=== PATIENT | female | born 1940 | race Caucasian/White ===

== ENCOUNTER 2017-06-24 10:32 | Inpatient (IN) | payer MEDICARE, OTHER ==
[~2017-06-24] VITALS: Ht 162.6 cm; Wt 52.0 kg
[2017-06-24 10:35] VITALS: BP 118/56; PULSE 84; RESP 18; TEMP 97.5; O2SAT 94
--- NOTE | 2017-06-24 11:01 | PD ---
HPI Chief Complaint: GI Complaint Time Seen by Provider: 10:46 Travel History International Travel<30 days: No Contact w/Intl Traveler<30days: No Traveled to known affect area: No History of Present Illness HPI 76-year-old female came to the emergency room with history of rectal bleeding. She is here with her . As per the patient the symptoms have been going on for past 2-3 days. Yesterday she was at her primary care's office where blood test and CT scan was ordered and she has copies of the report from there. The CT scan showed thickened wall of colon suggestive of either diverticulitis , colitis or malignancy. Patient says that she had her last colonoscopy done 3- 4 years ago which showed diverticulosis. They recently moved in to [facility] and she doesn't have any gastroenterologists here. Between yesterday from the time the blood test was done till now she has had 5-6 times bright red blood per rectum. She says every time she has this there is no stool in just brought. She is also having abdominal pain. She is nauseous but no vomiting. Patient recently had a facelift procedure done 1 week ago. Vital signs were relatively stable. [facility] Past Medical History Narrative Medical List of her past medical, surgical, social and family history is reviewed from the nursing note. Social History Tobacco Use: No Allergies-Medications (Allergen,Severity, Reaction): Coded Allergies: No Known Allergies (Unverified , 06/24/17) Comments No known drug allergies. Reported Meds & Prescriptions Reported Meds & Active Scripts Active Reported Lisinopril 5 Mg Tab 5 Mg PO DAILY Atorvastatin (Atorvastatin Calcium) 10 Mg Tab 10 Mg PO HS Adderall (Amphetamine-Dextroamphetamine) 10 Mg Tab 10 Mg PO BID Avoid late evening doses. Space doses at least 4 to 6 hours if more than once/day dosing. Narrative Medication List of her home medications reviewed from the nursing note. Review of Systems Except as stated in HPI: all other systems reviewed are Neg Physical Exam Narrative GENERAL: Awake, alert, moderate distress SKIN: Focused skin assessment warm/dry. HEAD: Atraumatic. Normocephalic. EYES: Pupils equal and round. No scleral icterus. No injection or drainage. ENT: No nasal bleeding or discharge. Dry mucous membrane NECK: Trachea midline. No JVD. CARDIOVASCULAR: Regular rate and rhythm. No murmur appreciated. RESPIRATORY: No accessory muscle use. Clear to auscultation. Breath sounds equal bilaterally. GASTROINTESTINAL: Abdomen soft, tender left and right lower quadrants., nondistended. Hepatic and splenic margins not palpable. MUSCULOSKELETAL: No obvious deformities. No clubbing. No cyanosis. No edema. NEUROLOGICAL: Awake and alert. No obvious cranial nerve deficits. Motor grossly within normal limits. Normal speech. PSYCHIATRIC: Appropriate mood and affect; insight and judgment normal. Data Data Last Documented VS Vital Signs Date Time Temp Pulse Resp B/P (MAP) Pulse Ox O2 Delivery O2 Flow Rate FiO2 06/24/17 12:00 78 18 160/72 (101) 98 Room Air 06/24/17 10:35 97.5 Orders Orders Basic Metabolic Panel (Bmp) (06/24/17 11:04) Complete Blood Count With Diff (06/24/17 11:04) Prothrombin Time / Inr (Pt) (06/24/17 11:04) Iv Access Insert/Monitor (06/24/17 11:04) Ecg Monitoring (06/24/17 11:04) Oximetry (06/24/17 11:04) Sodium Chlor 0.9% 1000 Ml Inj (Ns 1000 M (06/24/17 11:04) Sodium Chloride 0.9% Flush (Ns Flush) (06/24/17 11:15) Ciprofloxacin 400 Mg Premix (Cipro 400 M (06/24/17 11:15) Metronidazole 500 Mg Inj (Flagyl 500 Mg (06/24/17 11:15) Consult Gastroenterology (06/24/17 ) Cephalexin (Keflex) (06/24/17 12:00) (Hub Use Only)Inp Phy Cons/Ref (06/24/17 ) Admit Order (Ed Use Only) (06/24/17 12:31) Admit To Inpatient (06/24/17 ) Vital Signs (Adult) Q4H (06/24/17 12:31) Activity Oob With Assistance (06/24/17 12:31) Intake + Output RICKIE.QSHIFT (06/24/17 12:31) Sodium Chlor 0.9% 1000 Ml Inj (Ns 1000 M (06/24/17 12:31) Sodium Chloride 0.9% Flush (Ns Flush) (06/24/17 12:45) Sodium Chloride 0.9% Flush (Ns Flush) (06/24/17 21:00) Acetaminophen (Tylenol) (06/24/17 12:45) Ondansetron Inj (Zofran Inj) (06/24/17 12:45) Temazepam (Restoril) (06/24/17 12:45) Basic Metabolic Panel (Bmp) (06/25/17 06:00) Complete Blood Count With Diff (06/25/17 06:00) Electrocardiogram (06/24/17 12:31) Pt Request For Service (06/24/17 12:31) Case Management Consult (06/24/17 12:31) Scd Bilateral/Knee High RICKIE.BID (06/24/17 12:31) Rashad Bilateral/Knee High RICKIE.QSHIFT (06/24/17 12:31) Pharmacologic Contraindication (06/24/17 12:31) Naloxone Inj (Narcan Inj) (06/24/17 12:45) Docusate Sodium-Senna (Melissa-Colace) (06/24/17 21:00) Magnesium Hydroxide Liq (Milk Of Magnesi (06/24/17 12:45) Sennosides (Senokot) (06/24/17 12:45) Bisacodyl Supp (Dulcolax Supp) (06/24/17 12:45) Lactulose Liq (Lactulose Liq) (06/24/17 12:45) Inpatient Certification (06/24/17 ) Labs Laboratory Tests Test 06/24/17 11:10 White Blood Count 13.0 TH/MM3 Red Blood Count 4.26 MIL/MM3 Hemoglobin 13.9 GM/DL Hematocrit 41.1 % Mean Corpuscular Volume 96.4 FL Mean Corpuscular Hemoglobin 32.5 PG Mean Corpuscular Hemoglobin Concent 33.7 % Red Cell Distribution Width 13.0 % Platelet Count 280 TH/MM3 Mean Platelet Volume 8.7 FL Neutrophils (%) (Auto) 82.5 % Lymphocytes (%) (Auto) 9.3 % Monocytes (%) (Auto) 7.1 % Eosinophils (%) (Auto) 0.7 % Basophils (%) (Auto) 0.4 % Neutrophils # (Auto) 10.7 TH/MM3 Lymphocytes # (Auto) 1.2 TH/MM3 Monocytes # (Auto) 0.9 TH/MM3 Eosinophils # (Auto) 0.1 TH/MM3 Basophils # (Auto) 0.1 TH/MM3 CBC Comment DIFF FINAL Differential Comment Prothrombin Time 10.4 SEC Prothromb Time International Ratio 0.9 RATIO Blood Urea Nitrogen 9 MG/DL Creatinine 1.01 MG/DL Random Glucose 107 MG/DL Calcium Level 9.0 MG/DL Sodium Level 136 MEQ/L Potassium Level 4.1 MEQ/L Chloride Level 101 MEQ/L Carbon Dioxide Level 27.4 MEQ/L Anion Gap 8 MEQ/L Estimat Glomerular Filtration Rate 53 ML/MIN MDM Medical Decision Making Medical Screen Exam Complete: Yes Emergency Medical Condition: Yes Medical Record Reviewed: Yes Differential Diagnosis Acute diverticulitis, diverticulosis, colitis, intra-abdominal malignancy Narrative Course 11:45 AM awaiting for the blood test result. Patient is getting a liter fluid bolus. I have discussed the case with school library media specialist Dr. Fofana. She will consult on this patient while she is admitted. I have started her on IV Cipro and Flagyl as well with the possibility of acute diverticulitis. Stool for C. difficile is pending. Procedures EKG Prior to Arrival: No HemaPrompt Point of Care Internal Pos. & Neg. Controls: Passed Fecal Specimen Occult Blood: Positive Comment Bright red blood on the gloved finger Physician Communication Physician Communication Dr. Fofana Diagnosis Primary Impression: Rectal bleeding Additional Impression: Diverticulitis Qualified Codes: K57.93 - Diverticulitis of intestine, part unspecified, without perforation or abscess with bleeding Admitting Information Admitting Physician Requests: Admit Scripts Levofloxacin (Levaquin) 500 Mg Tablet 500 MG PO DAILY@1200 for infection for 10 Days, MG Prov: Peggy Samuel MD 06/26/17 Metronidazole (Flagyl) 500 Mg Tab 500 MG PO Q8HR for Infection for 10 Days, TAB Prov: Peggy Samuel MD 06/26/17 Pantoprazole (Pantoprazole) 40 Mg Tab 40 MG PO DAILY for gerd, #30 TAB Prov: Peggy Samuel MD 06/26/17 Jaswinder Herndon MD Jun 24, 2017 11:01
[2017-06-24] MEDS ORDERED: SODIUM CHLOR 0.9% 1000 ML INJ 1,000 ML IV SCH (11:04)
[2017-06-24] MEDS ORDERED: metroNIDAZOLE 500 MG INJ 100 ML IV ONE (11:15)
[2017-06-24] MEDS ORDERED: CIPROFLOXACIN 400 MG PREMIX 200 ML IV ONE (11:15)
[2017-06-24] MEDS ORDERED: SODIUM CHLORIDE 0.9% FLUSH 10 ML FLUSH IV FLUSH PRN ×2 (11:15→12:45)
[2017-06-24] MEDS ORDERED: ADDE10 PO (11:33)
[2017-06-24 11:45] LABS: AUTOMATED NEUTROPHIL # 10.7 TH/MM3 (1.8-7.7); BASOPHIL # 0.1 TH/MM3 (0-0.2); BASOPHIL % 0.4 % (0.0-2.0); EOSINOPHIL # 0.1 TH/MM3 (0-0.4); EOSINOPHIL % 0.7 % (0.0-4.0); HEMATOCRIT 41.1 % (35.0-46.0); HEMO FLAGS DIFF FINAL; LYMPH % 9.3 % (9.0-44.0); LYMPHOCYTE # 1.2 TH/MM3 (1.0-4.8); MEAN CELL VOLUME 96.4 FL (80.0-100.0); MEAN CORPUSCULAR HEMOGLOBIN 32.5 PG (27.0-34.0); MEAN CORPUSCULAR HGB CONC 33.7 % (32.0-36.0); MONO % 7.1 % (0.0-8.0); NEUT % 82.5 % (16.0-70.0); PLATELET COUNT 280 TH/MM3 (150-450); RED BLOOD COUNT 4.26 MIL/MM3 (4.00-5.30)
[2017-06-24 11:54] LABS: INTERNATIONAL NORMALIZED RATIO 0.9 RATIO; PROTHROMBIN TIME - PATIENT 10.4 SEC (9.8-11.6)
[2017-06-24 11:59] LABS: BICARBONATE 27.4 MEQ/L (21.0-32.0); POTASSIUM 4.1 MEQ/L (3.5-5.1)
[2017-06-24 12:00] VITALS: BP 160/72; PULSE 78; RESP 18; O2SAT 98
[2017-06-24] MEDS ORDERED: CEPHALEXIN MONOHYDRATE 250 MG CAP PO ONE (12:00)
[2017-06-24] MEDS ORDERED: ONDANSETRON HCL 4 MG/2 ML VIAL IVP PRN (12:45)
[2017-06-24] MEDS ORDERED: BISACODYL 10 MG SUPP RECTAL PRN (12:45)
[2017-06-24] MEDS ORDERED: LACTULOSE SYRUP 20 GM/30 ML CUP PO PRN (12:45)
[2017-06-24] MEDS ORDERED: TEMAZEPAM 15 MG CAP PO PRN (12:45)
[2017-06-24] MEDS ORDERED: SENNOSIDES 8.6 MG TAB PO PRN (12:45)
[2017-06-24] MEDS ORDERED: MAGNESIUM HYDROXIDE SUSP 30 ML CUP PO PRN (12:45)
[2017-06-24] MEDS ORDERED: ACETAMINOPHEN 325 MG TAB PO PRN (12:45)
[2017-06-24] MEDS: metroNIDAZOLE 500 MG INJ 100 ML IV SCH ×2 (12:45→20:33)
[2017-06-24] MEDS ORDERED: NALOXONE HCL 0.4 MG/ML AMP IV PUSH PRN (12:45)
[2017-06-24 13:00] VITALS: BP 150/67; PULSE 75; RESP 16; O2SAT 98
[2017-06-24] MEDS: CIPROFLOXACIN 400 MG PREMIX 200 ML IV SCH ×2 (13:00→20:34)
--- NOTE | 2017-06-24 14:06 | PD.CONS ---
HPI History of Present Illness This is a 76 year old female who presented to the emergency room for evaluation of rectal bleeding. She was seen by her primary care physician and had an outpatient CT scan of the abdomen and pelvis that revealed thickened wall of colon suggestive of either diverticulitis, colitis or malignancy. She states about 2 days ago, she had the sudden urge to move her bowels and became diaphoretic. She went to the restroom and passed "a puddle of blood and stool" initially. She had multiple episodes and it gradually became less stool and more blood until she was only passing blood. She has associated lower abdominal cramping. She has had chills, but no fevers. There are no aggravating or alleviating factors. Her weight has gone from 128 to 114 over the past few months. She reports that she is eating the same, but it is harder to keep weight on. She has not had any further episodes since her arrival to the ER. She recently underwent a "mini face lift" in [place] 1 week ago from yesterday. She was given an antibiotic afterwards, but had a reaction and therefore she called him and this was changed to another antibiotic. She completed this yesterday, but does not recall the name of the medicine. Her last colonoscopy was 4 years ago in [facility]. She has a hx of diverticulosis. (Amirah Robles) PFSH Past Medical History Hx pyloric stenosis Squamous cell carcinoma skin cancer Diverticulosis Past Surgical History EGD/Colonoscopy Left nephrectomy Recent "mini face lift" Skin cancer removals Tonsillectomy Appendectomy (Amirah Robles) Coded Allergies: No Known Allergies (Unverified , 06/24/17) Medications Allergies Coded Allergies Type Severity Reaction Last Updated Verified No Known Allergies 06/24/17 No Active Scripts Medications Dose Route/Sig Max Daily Dose Days Date Category Dose Instructions Adderall (Amphetamine-Dextroamphetamine) 10 Mg Tab 10 Mg PO BID 06/24/17 Reported Avoid late evening doses. Space doses at least 4 to 6 hours if more than once/day dosing. Family History Denies any family hx of esophageal, gastric, or colorectal cancer Son had prostate cancer Social History Quit smoking years ago, around age 29 No etoh use (Amirah Robles) Review of Systems Constitutional: COMPLAINS OF: Diaphoretic episodes, Fatigue, Weight loss, Chills, DENIES: Fever, Change in appetite Respiratory: DENIES: Cough Cardiovascular: DENIES: Chest pain Gastrointestinal: COMPLAINS OF: Abdominal pain, Bloody stools, Diarrhea, DENIES : Black stools, Constipation, Nausea, Vomiting, Anorexia, Odynophagia, Heartburn , Hematemesis Integumentary: DENIES: Rash Hematologic/lymphatic: COMPLAINS OF: Bruising Neurologic: DENIES: Headache Psychiatric: DENIES: Confusion (RoblesAmirah Ross CARLOS) GI Exam Vitals I&O Vital Signs Date Time Temp Pulse Resp B/P (MAP) Pulse Ox O2 Delivery O2 Flow Rate FiO2 06/24/17 10:35 97.5 84 18 118/56 (76) 94 Room Air Laboratory Test 06/24/17 11:10 White Blood Count 13.0 TH/MM3 Red Blood Count 4.26 MIL/MM3 Hemoglobin 13.9 GM/DL Hematocrit 41.1 % Mean Corpuscular Volume 96.4 FL Mean Corpuscular Hemoglobin 32.5 PG Mean Corpuscular Hemoglobin Concent 33.7 % Red Cell Distribution Width 13.0 % Platelet Count 280 TH/MM3 Mean Platelet Volume 8.7 FL Neutrophils (%) (Auto) 82.5 % Lymphocytes (%) (Auto) 9.3 % Monocytes (%) (Auto) 7.1 % Eosinophils (%) (Auto) 0.7 % Basophils (%) (Auto) 0.4 % Neutrophils # (Auto) 10.7 TH/MM3 Lymphocytes # (Auto) 1.2 TH/MM3 Monocytes # (Auto) 0.9 TH/MM3 Eosinophils # (Auto) 0.1 TH/MM3 Basophils # (Auto) 0.1 TH/MM3 CBC Comment DIFF FINAL Differential Comment Prothrombin Time 10.4 SEC Prothromb Time International Ratio 0.9 RATIO Blood Urea Nitrogen 9 MG/DL Creatinine 1.01 MG/DL Random Glucose 107 MG/DL Calcium Level 9.0 MG/DL Sodium Level 136 MEQ/L Potassium Level 4.1 MEQ/L Chloride Level 101 MEQ/L Carbon Dioxide Level 27.4 MEQ/L Anion Gap 8 MEQ/L Estimat Glomerular Filtration Rate 53 ML/MIN Physical Examination HEENT: Pupils round and reactive to light; normocephalic; atraumatic; no jaundice. Throat is clear. NECK: Neck is supple, no JVD, no lymphadenopathy. CHEST: Chest is clear to auscultation and percussion. CARDIAC: Regular rate and rhythm with no murmur gallop or rubs. ABDOMEN: Soft, nondistended, nontender; no hepatosplenomegaly; bowel sounds are present in all four quadrants. EXTREMITIES: No clubbing, cyanosis, or edema. SKIN: Normal; no rash; no jaundice. 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 (Amirah Robles) Assessment and Plan Plan ASSESSMENT: - Diverticulitis vs. Colitis. Pt started having rectal bleeding with associated lower abdominal cramping. CT scan abdomen and pelvis with contrast (06/24/17)---> 1.) extensive wall thickening descending colon, likely diverticulitis vs. colitis. No perforation or abscess. Once acute process has resolved, colonoscopy may be warranted to ensure no underlying pathology. 2.) Prominent endometrium in prominent appearing uterus, malignancy cannot be excluded. Pelvic US recommended for further characterization. 3.) Left nephrectomy. 4.) Sclerotic focus at L1, nonspecific. (+) Diverticulosis. Last colonoscopy 4 years ago. (+) recent procedure and abx use (completed course yesterday). No diarrhea. Will get CDiff. Otherwise, tx for diverticulitis x 10 days and then consider colonoscopy in 6 weeks. - Leukocytosis. Likely secondary to above. Abx - GEMMA, Mild. - Abn. Imaging of uterus, with prominent endometrium in prominent appearing uterus, malignancy cannot be excluded. Pelvic US recommended. Will defer to attending. PLAN: - Low residue diet - Cipro/Flagyl x 10 days - Send stool for CDiff - CBC, BMP in am - Supportive care - Will need outpatient colonoscopy in 6 weeks - Further recommendations to follow based on results of above - Pt seen and examined by Dr. Fofana and myself and this note is written on his behalf (Amirah Robles) Physician Comments seen, examined agree with above flexisigmoidoscopy in am to r/o ischemic colitis stool studies (Margarita Fofana MD) Amirah Robles Jun 24, 2017 14:06 Margarita Fofana MD Jun 24, 2017 19:23
--- NOTE | 2017-06-24 14:30 | HHI.HP ---
[facility] Service [facility] Primary Care Physician Non-Staff Admission Diagnosis rectal bleed, acute diverticulitis Diagnoses: Chief Complaint: Rectal bleeding and abdominal pain. Travel History International Travel<30 Days: No Contact w/Intl Traveler <30 Da: No Traveled to Known Affected Are: No History of Present Illness Written by Manuel Jon, acting as scribe for Dr. Bharat Samuel on 06/24/17 at 14: 18. Ms. 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 She stated that the surgeon told her she was not a candidate at that time for surgery. Ms. Acosta reported having undergone a "mini facelift" approximately one week ago and was due to have her stitches removed yesterday, but due to her condition, was not able to return to [place], [place] to have them removed. Ms. Freeman presented to the emergency room for evaluation of rectal bleeding that began 2-3 days ago. At that time though the rectal bleeding onset she also began experiencing abdominal pain. Bowel movements have been described as bloody without stool. Over the past 24 hours she reported having 5-6 large bloody bowel movements. She stated when this began she felt "icy cold" and was sweating to the extent that "sweated right through my close". Appetite has also been reported reduced. She was seen by her primary care physician and had an outpatient CT scan of the abdomen and pelvis that revealed thickened wall of colon suggestive of either diverticulitis, colitis or malignancy. Ms. Freeman reported her primary care physician directed her to come to [facility] for evaluation and management of her condition. At time of interview Ms. Freeman endorsed fatigue, abdominal pain, and concerned about her general well-being. She denied fever, chills, nausea, vomiting, constipation, chest/abdominal pain, shortness of breath. A 10 point review of systems was completed and except as noted above, was negative. Review of Systems Except as stated in HPI: all other systems reviewed are Neg Past Family Social History Past Medical History Hx pyloric stenosis Squamous cell carcinoma skin cancer Diverticulosis Hypnagogic hallucinations Spinal/bacterial meningitis. Hypertension. Past Surgical History EGD/Colonoscopy Left nephrectomy Recent "mini face lift" Skin cancer removals Tonsillectomy Appendectomy Reported Medications Reported Meds & Active Scripts Active Reported Adderall (Amphetamine-Dextroamphetamine) 10 Mg Tab 10 Mg PO BID Avoid late evening doses. Space doses at least 4 to 6 hours if more than once/day dosing. Allergies: Coded Allergies: No Known Allergies (Unverified , 06/24/17) Active Ordered Medications Current Medications Medications (Trade) Dose Ordered Sig/Ciaran Route Start Time Stop Time Status Last Admin (NS Flush) 2 ml UNSCH PRN IV FLUSH 06/24/17 11:15 06/24/17 11:28 Sodium Chloride 1,000 ml @ 100 mls/hr Q10H IV 06/24/17 12:31 06/24/17 15:31 (NS Flush) 2 ml UNSCH PRN IV FLUSH 06/24/17 12:45 (NS Flush) 2 ml BID IV FLUSH 06/24/17 21:00 (Tylenol) 650 mg Q4H PRN PO 06/24/17 12:45 (Zofran Inj) 4 mg Q6H PRN IVP 06/24/17 12:45 (Restoril) 15 mg HS PRN PO 06/24/17 12:45 (Narcan Inj) 0.4 mg UNSCH PRN IV PUSH 06/24/17 12:45 (Melissa-Colace) 1 tab BID PO 06/24/17 21:00 (Milk Of Magnesia Liq) 30 ml Q12H PRN PO 06/24/17 12:45 (Senokot) 17.2 mg Q12H PRN PO 06/24/17 12:45 (Dulcolax Supp) 10 mg DAILY PRN RECTAL 06/24/17 12:45 (Lactulose Liq) 30 ml DAILY PRN PO 06/24/17 12:45 (Protonix) 40 mg DAILY PO 06/25/17 09:00 Ciprofloxacin/ Dextrose 200 ml @ 200 mls/hr Q8H IV 06/24/17 13:00 Metronidazole 100 ml @ 100 mls/hr Q6H IV 06/24/17 12:45 (Adderall) 10 mg BID PO 06/24/17 21:00 Family History Denies any family hx of esophageal, gastric, or colorectal cancer Son had prostate cancer Social History Quit smoking years ago, around age 29 No etoh use Physical Exam Vital Signs Vital Signs Date Time Temp Pulse Resp B/P (MAP) Pulse Ox O2 Delivery O2 Flow Rate FiO2 06/24/17 10:35 97.5 84 18 118/56 (76) 94 Room Air Physical Exam GENERAL: This is a well-nourished, well-developed patient, in no apparent distress. SKIN: No rashes, ecchymoses or lesions. Cool and dry. HEAD: Atraumatic. Normocephalic. EYES: Pupils equal round and reactive. Extraocular motions intact. No scleral icterus. No injection or drainage. ENT: Nose without bleeding or purulent drainage. Airway patent. NECK: Trachea midline. No lymphadenopathy. Supple and nontender. CARDIOVASCULAR: Regular rate and rhythm without murmurs, gallops, or rubs. RESPIRATORY: Clear to auscultation. Breath sounds equal bilaterally. No wheezes , rales, or rhonchi. GASTROINTESTINAL: Abdomen soft, non-tender, nondistended. No hepato- splenomegaly or guarding. MUSCULOSKELETAL: Extremities without clubbing, cyanosis, or edema. NEUROLOGICAL: Awake and alert. Cranial nerves II through XII intact. Motor and sensory grossly within normal limits. Five out of 5 muscle strength in all muscle groups. Speech was clear and fluent. Laboratory Laboratory Tests Test 06/24/17 11:10 White Blood Count 13.0 Red Blood Count 4.26 Hemoglobin 13.9 Hematocrit 41.1 Mean Corpuscular Volume 96.4 Mean Corpuscular Hemoglobin 32.5 Mean Corpuscular Hemoglobin Concent 33.7 Red Cell Distribution Width 13.0 Platelet Count 280 Mean Platelet Volume 8.7 Neutrophils (%) (Auto) 82.5 Lymphocytes (%) (Auto) 9.3 Monocytes (%) (Auto) 7.1 Eosinophils (%) (Auto) 0.7 Basophils (%) (Auto) 0.4 Neutrophils # (Auto) 10.7 Lymphocytes # (Auto) 1.2 Monocytes # (Auto) 0.9 Eosinophils # (Auto) 0.1 Basophils # (Auto) 0.1 CBC Comment DIFF FINAL Differential Comment Prothrombin Time 10.4 Prothromb Time International Ratio 0.9 Blood Urea Nitrogen 9 Creatinine 1.01 Random Glucose 107 Calcium Level 9.0 Sodium Level 136 Potassium Level 4.1 Chloride Level 101 Carbon Dioxide Level 27.4 Anion Gap 8 Estimat Glomerular Filtration Rate 53 Result Diagram: 06/24/17 1110 06/24/17 1110 Caprini VTE Risk Assessment Caprini VTE Risk Assessment: Mod/High Risk (score >= 2) VTE Pharm Contraindication: Active bleeding Caprini Risk Assessment Model Point Value = 1 Point Value = 2 Point Value = 3 Point Value = 5 Age 41-60 Minor surgery BMI > 25 kg/m2 Swollen legs Varicose veins or History of unexplained or recurrent spontaneous Oral contraceptives or hormone replacement Sepsis (< 1 month) Serious lung disease, including pneumonia (< 1 month) Abnormal pulmonary function Acute myocardial infarction Congestive heart failure (< 1 month) History of inflammatory bowel disease Medical patient at bed rest Age 61-74 Arthroscopic surgery Major open surgery (> 45 min) Laparoscopic surgery (> 45 min) Malignancy Confined to bed (> 72 hours) Immobilizing plaster cast Central venous access Age >= 75 History of VTE Family history of VTE Factor V Leiden Prothrombin [id number] Lupus anticoagulant Anticardiolipin antibodies Elevated serum homocysteine Heparin-induced thrombocytopenia Other congenital or acquired thrombophilia Stroke (< 1 month) Elective arthroplasty Hip, pelvis, or leg fracture Acute spinal cord injury (< 1 month) Prophylaxis Regimen Total Risk Factor Score Risk Level Prophylaxis Regimen 0-1 Low Early ambulation 2 Moderate Order ONE of the following: *Sequential Compression Device (SCD) *Heparin 5000 units SQ BID 3-4 Higher Order ONE of the following medications: *Heparin 5000 units SQ TID *Enoxaparin/Lovenox 40 mg SQ daily (WT < 150 kg, CrCl > 30 mL/min) *Enoxaparin/Lovenox 30 mg SQ daily (WT < 150 kg, CrCl > 10-29 mL/min) *Enoxaparin/Lovenox 30 mg SQ BID (WT < 150 kg, CrCl > 30 mL/min) AND/OR *Sequential Compression Device (SCD) 5 or more Highest Order ONE of the following medications: *Heparin 5000 units SQ TID (Preferred with Epidurals) *Enoxaparin/Lovenox 40 mg SQ daily (WT < 150 kg, CrCl > 30 mL/min) *Enoxaparin/Lovenox 30 mg SQ daily (WT < 150 kg, CrCl > 10-29 mL/min) *Enoxaparin/Lovenox 30 mg SQ BID (WT < 150 kg, CrCl > 30 mL/min) AND *Sequential Compression Device (SCD) Assessment and Plan Problem List: (1) GI (gastrointestinal bleed) ICD Code: K92.2 - Gastrointestinal hemorrhage, unspecified Status: Acute (2) Diverticulitis ICD Code: K57.92 - Diverticulitis of intestine, part unspecified, without perforation or abscess without bleeding Status: Acute (3) Hypertension, essential ICD Code: I10 - Essential (primary) hypertension Status: Chronic (4) ADD (attention deficit disorder) ICD Code: F98.8 - Other specified behavioral and emotional disorders with onset usually occurring in childhood and adolescence (5) Hypnagogic hallucinations ICD Code: R44.2 - Other hallucinations Status: Chronic Assessment and Plan Ms. 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 She stated that the surgeon told her she was not a candidate at that time for surgery. Ms. Acosta reported having undergone a "mini facelift" approximately one week ago and was due to have her stitches removed yesterday, but due to her condition, was not able to return to [place], [place] to have them removed. GI bleed Diverticulitis -Admit to inpt service. -GI consulted -Protonix 40 mg by mouth daily -Ciprofloxacin 400 mg IV every 8 hrs -Metronidazole 500 mg IV every 6 hours Hypnagogic hallucinations Attention deficit disorder -Adderall 10 mg by mouth twice a day Hypertension -Enlapril IV prn for systolic BP greater than 160 -Hydralazine IV prn for systolic BP greater than 160 -Resume home medications once known. DVT prophylaxis -Chemoprophylaxis not warranted at this time due to patient's active bleeding. -SCDs ordered. Diet -Regular per GI This note was transcribed by LINSEY Burch. I, Dr. Peggy Samuel personally performed the history, physical exam, and medical decision making; and confirmed the accuracy of the information in the transcribed note. Authenticated by Dr. Peggy Samuel on 06/24/17 at 14:18. Discussed Condition With Patient and ER staff Physician Certification 2 Midnight Certification Type: Admission for Inpatient Services Order for Inpatient Services The services are ordered in accordance with Medicare regulations or non- Medicare payer requirements, as applicable. In the case of services not specified as inpatient-only, they are appropriately provided as inpatient services in accordance with the 2-midnight benchmark. Estimated LOS (days): 3 Three days is the estimated time the patient will need to remain in the hospital , assuming treatment plan goals are met and no additional complications. Post-Hospital Plan: Home Problem Qualifiers (1) GI (gastrointestinal bleed): Qualified Codes: K92.2 - Gastrointestinal hemorrhage, unspecified (2) Diverticulitis: Qualified Codes: K57.93 - Diverticulitis of intestine, part unspecified, without perforation or abscess with bleeding (3) ADD (attention deficit disorder): Qualified Codes: F90.9 - Attention-deficit hyperactivity disorder, unspecified type Manuel Jon Jr. Jun 24, 2017 14:30 Peggy Samuel MD Jun 24, 2017 15:36
[2017-06-24 15:00] VITALS: BP 171/77; PULSE 75; RESP 19; O2SAT 98
[2017-06-24] MEDS: SODIUM CHLOR 0.9% 1000 ML INJ 1,000 ML IV SCH ×2 (15:31→20:00)
[2017-06-24] MEDS ORDERED: LISI-519 PO (15:54)
[2017-06-24] MEDS ORDERED: ATOR10TA15 PO (15:54)
[2017-06-24] MEDS ORDERED: hydrALAZINE HCL 10 MG TAB PO PRN (17:30)
[2017-06-24] MEDS ORDERED: ENALAPRILAT 2.5 MG/2 ML VIAL IV PUSH PRN (17:30)
[2017-06-24 18:39] VITALS: BP 143/66
[2017-06-24 20:00] VITALS: BP 142/63; PULSE 78; RESP 16; TEMP 97.2; O2SAT 95
[2017-06-24] MEDS: DOCUSATE SODIUM 50 MG/SENNA 8.6 MG TAB PO SCH (20:34)
[2017-06-24] MEDS: SODIUM CHLORIDE 0.9% FLUSH 10 ML FLUSH IV FLUSH SCH (20:34)
[2017-06-24] MEDS: DEXTROAMPHETAMINE/AMPHETAMINE 10 MG TAB PO SCH (21:00)
[2017-06-25] MEDS: metroNIDAZOLE 500 MG INJ 100 ML IV SCH ×5 (00:32→23:13)
[2017-06-25 00:33] LABS: REVIEW FLAG FINAL
[2017-06-25 00:37] VITALS: BP 141/65; PULSE 76; RESP 16; TEMP 96.5; O2SAT 97
[2017-06-25] MEDS ORDERED: LACTATED RINGER'S 1000 ML IV PRN (04:45)
[2017-06-25] MEDS: CIPROFLOXACIN 400 MG PREMIX 200 ML IV SCH ×3 (04:56→19:51)
[2017-06-25 07:06] LABS: AUTOMATED NEUTROPHIL # 9.3 TH/MM3 (1.8-7.7); BASOPHIL # 0.2 TH/MM3 (0-0.2); BASOPHIL % 1.8 % (0.0-2.0); EOSINOPHIL # 0.3 TH/MM3 (0-0.4); EOSINOPHIL % 2.7 % (0.0-4.0); HEMATOCRIT 35.9 % (35.0-46.0); HEMO FLAGS DIFF FINAL; LYMPH % 7.2 % (9.0-44.0); LYMPHOCYTE # 0.8 TH/MM3 (1.0-4.8); MEAN CELL VOLUME 96.5 FL (80.0-100.0); MEAN CORPUSCULAR HEMOGLOBIN 32.4 PG (27.0-34.0); MEAN CORPUSCULAR HGB CONC 33.6 % (32.0-36.0); MONO % 6.9 % (0.0-8.0); NEUT % 81.4 % (16.0-70.0); PLATELET COUNT 211 TH/MM3 (150-450); RED BLOOD COUNT 3.72 MIL/MM3 (4.00-5.30); RED CELL DISTRIBUTION WIDTH 12.8 % (11.6-17.2); WHITE BLOOD COUNT 11.4 TH/MM3 (4.0-11.0)
[2017-06-25 07:31] LABS: BICARBONATE 25.9 MEQ/L (21.0-32.0); POTASSIUM 3.5 MEQ/L (3.5-5.1)
[2017-06-25 08:00] VITALS: BP 125/60; PULSE 68; RESP 18; TEMP 97.8; O2SAT 94
[2017-06-25] MEDS: DEXTROAMPHETAMINE/AMPHETAMINE 10 MG TAB PO SCH ×3 (08:12→19:52)
[2017-06-25] MEDS: SODIUM CHLORIDE 0.9% FLUSH 10 ML FLUSH IV FLUSH SCH ×2 (08:12→19:54)
[2017-06-25] MEDS: PANTOPRAZOLE SOD 40 MG DELAYED RELEASE TAB PO SCH (08:14)
[2017-06-25] MEDS: SODIUM CHLOR 0.9% 1000 ML INJ 1,000 ML IV SCH ×3 (08:14→20:02)
[2017-06-25] MEDS: DOCUSATE SODIUM 50 MG/SENNA 8.6 MG TAB PO SCH ×2 (08:14→19:52)
[2017-06-25] MEDS ORDERED: PROPOFOL 200 MG/20 ML AMP IV PUSH ONE (10:10)
--- NOTE | 2017-06-25 10:12 | GIPROC ---
[facility] [address] [facility]. [facility], [address] FLEXIBLE SIGMOIDOSCOPY PROCEDURE REPORT EXAM DATE: 06/25/2017 PATIENT NAME: Lupis Freeman MR #: [id number] BIRTHDATE: 1940 ORDER #: [id number] ATTENDING: Margarita Fofana MD CERTIFIED CREDIT COUNSELOR: Tej Vargas and Colleen Lozada STATUS: inpatient INDICATIONS: The patient is a 76 yr old female here for a flexible sigmoidoscopy due to rectal bleeding , abnormal ct PROCEDURE PERFORMED: Flexible Sigmoidoscopy with biopsy MEDICATIONS: Per Anesthesia and None. ESTIMATED BLOOD LOSS: None CONSENT: The patient understands the risks and benefits of the procedure and understands that these risks include, but are not limited to: sedation, allergic reaction, infection, perforation and/or bleeding. Alternative means of evaluation and treatment include, among others: physical exam, x-rays, and/or surgical intervention. The patient elects to proceed with this endoscopic procedure. medical equipment was checked for proper function. Hand hygiene and appropriate measures for infection prevention was taken. After the risks, benefits and alternatives of the procedure were thoroughly explained, Informed consent was verified, confirmed and timeout was successfully executed by the treatment team. A digital rectal exam revealed external hemorrhoids The [id number] endoscope was introduced through the anus and advanced to the descending colon. The prep was poor. The instrument was then slowly withdrawn as the colon was fully examined. COLON FINDINGS: Severe diverticulosis sigmoid,descending colitis in descending -suggesting ischemic colitis-biopsy. Retroflexed views revealed external hemorrhoid The scope was then completely withdrawn from the patient and the procedure terminated. ADVERSE EVENTS: There were no complications. IMPRESSIONS: 1. Severe diverticulosis sigmoid,descending colitis in descending -suggesting ischemic colitis-biopsy 2. Retroflexed views revealed external hemorrhoid 3. Revealed external hemorrhoids RECOMMENDATIONS: 1. Await biopsy results 2. Start soft diet colon in 6-8 weeks continue antibiotics if tolerated diet and no bleeding can dc home in 1-2 days fu office 2 weeks low fiber diet RECALL: Return 8 weeks Colonoscopy Margarita Fofana MD eSigned: Margarita Fofana MD 06/25/2017 10:12 AM cc:
--- NOTE | 2017-06-25 11:17 | HHI.PR ---
Subjective Remarks Returned from sigmoidoscopy. In bed, appears in nad. Says she did not have any bleeding overnight and she feels much better. No n/v/d/c. Denies abd pain. No chest pain, lightheadedness. Objective Vitals Vital Signs Date Time Temp Pulse Resp B/P (MAP) Pulse Ox O2 Delivery O2 Flow Rate FiO2 06/25/17 10:27 97.6 74 16 152/78 (102) 98 06/25/17 08:00 97.8 68 18 125/60 (81) 94 06/25/17 00:37 96.5 76 16 141/65 (90) 97 06/24/17 20:00 97.2 78 16 142/63 (89) 95 06/24/17 18:39 78 16 143/66 (91) 98 06/24/17 15:00 75 19 171/77 (108) 98 Room Air 06/24/17 13:00 75 16 150/67 (94) 98 Room Air 06/24/17 12:00 78 18 160/72 (101) 98 Room Air I/O 06/24/17 06/24/17 06/24/17 06/25/17 06/25/17 06/25/17 07:00 15:00 23:00 07:00 15:00 23:00 Intake Total 1300 ml 601 ml 1207 ml 150 ml Balance 1300 ml 601 ml 1207 ml 150 ml Intake IV Total 1300 ml 601 ml 1207 ml Other 150 ml # Voids 2 Result Diagram: 06/25/17 0540 06/25/17 0540 Objective Remarks GENERAL: This is a well-nourished, well-developed patient, in no apparent distress. SKIN: No rashes, ecchymoses or lesions. Cool and dry. CARDIOVASCULAR: Regular rate and rhythm without murmurs, gallops, or rubs. RESPIRATORY: Clear to auscultation. Breath sounds equal bilaterally. No wheezes , rales, or rhonchi. GASTROINTESTINAL: Abdomen soft, non-tender, nondistended. No hepato- splenomegaly or guarding. MUSCULOSKELETAL: Extremities without clubbing, cyanosis, or edema. NEUROLOGICAL: Awake and alert. Cranial nerves II through XII intact. Motor and sensory grossly within normal limits. Five out of 5 muscle strength in all muscle groups. Speech was clear and fluent. A/P Problem List: (1) GI (gastrointestinal bleed) ICD Code: K92.2 - Gastrointestinal hemorrhage, unspecified Status: Acute (2) Diverticulitis ICD Code: K57.92 - Diverticulitis of intestine, part unspecified, without perforation or abscess without bleeding Status: Acute (3) Hypertension, essential ICD Code: I10 - Essential (primary) hypertension Status: Chronic (4) ADD (attention deficit disorder) ICD Code: F98.8 - Other specified behavioral and emotional disorders with onset usually occurring in childhood and adolescence (5) Hypnagogic hallucinations ICD Code: R44.2 - Other hallucinations Status: Chronic Assessment and Plan Ms. 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 She stated that the surgeon told her she was not a candidate at that time for surgery. Ms. Acosta reported having undergone a "mini facelift" approximately one week ago and was due to have her stitches removed yesterday, but due to her condition, was not able to return to [place], [place] to have them removed. Rectal bleeding HGB 13 on admission trending down, monitor H.H transfuse of HGB < 7 or if symptomatic Severe diverticulosis descending sigmoid Colitis in descending sig suggesting ischemic colitis this was biopsied External hemorrhoids -Admit to inpt service. -GI consulted, appreciate recommendations -Protonix 40 mg by mouth daily -Ciprofloxacin 400 mg IV every 8 hrs -Metronidazole 500 mg IV every 6 hours -S/P sigmoidoscopy 06/[address]ofana GI -Soft diet advance as indicated -Colonoscopy in 8 weeks -If tolerates diet and no bleeding can DC home in 1-2 days . Monitor H/H - To follow up with GI as OP in 2 weeks Hypnagogic hallucinations Attention deficit disorder -Adderall 10 mg by mouth twice a day Hypertension -Enlapril IV prn for systolic BP greater than 160 -Hydralazine IV prn for systolic BP greater than 160 -Resume home medications once known. DVT prophylaxis -Chemoprophylaxis not warranted at this time due to patient's active bleeding. -SCDs ordered. Diet - Soft diet, advance diet as per GI recommendation Discussed Condition With Patient and nurse Problem Qualifiers (1) GI (gastrointestinal bleed): Qualified Codes: K92.2 - Gastrointestinal hemorrhage, unspecified (2) Diverticulitis: Qualified Codes: K57.93 - Diverticulitis of intestine, part unspecified, without perforation or abscess with bleeding (3) ADD (attention deficit disorder): Qualified Codes: F90.9 - Attention-deficit hyperactivity disorder, unspecified type Peggy Samuel MD Jun 25, 2017 11:17
[2017-06-25 12:00] VITALS: BP 119/59; PULSE 76; RESP 16; TEMP 97.2; O2SAT 98
[2017-06-25] MEDS ORDERED: PROPOFOL 200 MG/20 ML AMP IV ONE (12:00)
[2017-06-25] MEDS ORDERED: KETOROLAC TROMETHAMINE 30 MG/ML (IVP) VIAL IV PUSH ONE (12:00)
[2017-06-25] MEDS ORDERED: MIDAZOLAM HCL 2 MG/2 ML VIAL IV ONE (12:00)
[2017-06-25] MEDS ORDERED: LIDOCAINE HCL 1% PF 5 ML AMPULE OTHER ONE (12:00)
[2017-06-25] MEDS ORDERED: ONDANSETRON HCL 4 MG/2 ML VIAL IV PUSH ONE (12:00)
--- NOTE | 2017-06-25 14:24 | EKG ---
Date Performed: 06/24/2017 Time Performed: 14:18:25 PTAGE: 76 years EKG: Sinus rhythm NONSPECIFIC T-WAVE ABNORMALITY BORDERLINE ECG NO PREVIOUS TRACING DOCTOR: Jorje Del Cid Interpretating Date/Time 06/25/2017 14:23:31
[2017-06-25 16:00] VITALS: BP 166/82; PULSE 73; RESP 16; TEMP 97.4; O2SAT 94
[2017-06-25 20:22] VITALS: BP 151/66; PULSE 77; RESP 17; TEMP 97.1; O2SAT 94
[2017-06-25] MEDS ORDERED: ATORVASTATIN 10 MG TAB PO SCH (21:00)
[2017-06-26 00:52] VITALS: BP 165/71; PULSE 84; RESP 16; TEMP 97.1; O2SAT 99
[2017-06-26 04:42] VITALS: BP 160/69; PULSE 77; RESP 16; TEMP 97.8; O2SAT 98
[2017-06-26] MEDS: metroNIDAZOLE 500 MG INJ 100 ML IV SCH (05:50)
[2017-06-26] MEDS: CIPROFLOXACIN 400 MG PREMIX 200 ML IV SCH (05:51)
[2017-06-26 08:00] VITALS: BP 189/82; PULSE 70; RESP 17; TEMP 96.9; O2SAT 92
[2017-06-26] MEDS: PANTOPRAZOLE SOD 40 MG DELAYED RELEASE TAB PO SCH (08:16)
[2017-06-26] MEDS: DOCUSATE SODIUM 50 MG/SENNA 8.6 MG TAB PO SCH (08:16)
[2017-06-26] MEDS: DEXTROAMPHETAMINE/AMPHETAMINE 10 MG TAB PO SCH (08:17)
[2017-06-26] MEDS: SODIUM CHLORIDE 0.9% FLUSH 10 ML FLUSH IV FLUSH SCH (08:17)
[2017-06-26] MEDS ORDERED: LISINOPRIL 5 MG TAB PO SCH (09:00)
[2017-06-26 10:00] VITALS: BP 155/68; PULSE 74; RESP 16; TEMP 96.7; O2SAT 96
--- NOTE | 2017-06-26 11:26 | HHI.GIFU ---
Subjective Remarks Ambulating in room, no distress. States she is feeling much better. No further bleeding. She has had a few liquid stools, very small amounts, but she did not know that she needed to get a stool sample. She is tolerating diet, feeling much better and hoping to go home today. Objective Vitals I&O Vital Signs Date Time Temp Pulse Resp B/P (MAP) Pulse Ox O2 Delivery O2 Flow Rate FiO2 06/26/17 10:00 96.7 74 16 155/68 (97) 96 06/26/17 08:00 96.9 70 17 189/82 (117) 92 06/26/17 04:42 97.8 77 16 160/69 (99) 98 06/26/17 00:52 97.1 84 16 165/71 (102) 99 06/25/17 20:22 97.1 77 17 151/66 (94) 94 06/25/17 16:00 97.4 73 16 166/82 (110) 94 06/25/17 12:00 97.2 76 16 119/59 (79) 98 06/25/17 10:27 97.6 74 16 152/78 (102) 98 I/O 06/25/17 06/25/17 06/25/17 06/26/17 06/26/17 06/26/17 07:00 15:00 23:00 07:00 15:00 23:00 Intake Total 1207 ml 250 ml 1400 ml 100 ml 300 ml Balance 1207 ml 250 ml 1400 ml 100 ml 300 ml Intake IV Total 1207 ml 100 ml 1400 ml 100 ml 300 ml Other 150 ml # Voids 2 2 # Bowel Movements 1 Physical Exam HEENT: Normocephalic; atraumatic; no jaundice. CHEST: Chest is clear to auscultation and percussion. CARDIAC: RRR ABDOMEN: Soft, nondistended, mild LLQ tenderness no hepatosplenomegaly; bowel sounds are present in all four quadrants. EXTREMITIES: No clubbing, cyanosis, or edema. SKIN: Normal; no rash; no jaundice. BUTTONHOLE FACER: No focal deficits; alert and oriented times three. Assessment and Plan Plan ASSESSMENT: - Diverticulitis vs. Colitis. Pt started having rectal bleeding with associated lower abdominal cramping. CT scan abdomen and pelvis with contrast (06/24/17)---> 1.) extensive wall thickening descending colon, likely diverticulitis vs. colitis. No perforation or abscess. Once acute process has resolved, colonoscopy may be warranted to ensure no underlying pathology. 2.) Prominent endometrium in prominent appearing uterus, malignancy cannot be excluded. Pelvic US recommended for further characterization. 3.) Left nephrectomy. 4.) Sclerotic focus at L1, nonspecific. (+) Diverticulosis. Last colonoscopy 4 years ago. (+) recent procedure and abx use (completed course yesterday). No diarrhea. S/P Flexible sigmoidoscopy (06/25/17)----> 1. Severe diverticulosis sigmoid ,descending colitis in descending -suggesting ischemic colitis-biopsy 2. Retroflexed views revealed external hemorrhoid 3. Revealed external hemorrhoids. No further bleeding. Stool studies have not been sent, but patient is feeling much better and hoping to go home. WBC 11.4, HH stable yesterday ..9. Cipro/Flagyl - Leukocytosis. Improved. Cipro/flagyl - GEMMA, improved. - Abn. Imaging of uterus, with prominent endometrium in prominent appearing uterus, malignancy cannot be excluded. Pelvic US recommended. Will defer to attending. PLAN: - Okay to d/c home from GI standpoint - Low residue diet - Change abx to po and continue for 10 days today - FU MARTÍN in 2 weeks - FU colonoscopy in 6-8 weeks - Pt seen and examined by Dr. Fofana and myself and this note is written on her behalf Amirah Robles Jun 26, 2017 10:35
[2017-06-26 12:00] VITALS: BP 173/74; PULSE 75; RESP 17; TEMP 96.7; O2SAT 95
[2017-06-26] MEDS ORDERED: LEVOFLOXACIN 500 MG TAB PO SCH (12:00)
[2017-06-26] MEDS ORDERED: PANT40TA3 PO (13:01)
[2017-06-26] MEDS ORDERED: METR-1 PO ×2 (13:01→13:16)
[2017-06-26] MEDS ORDERED: LEVA500T20 PO ×2 (13:01→13:16)
--- NOTE | 2017-06-26 13:01 | HHI.DCPOC ---
Discharge Care Plan Goals to Promote Your Health * To prevent worsening of your condition and complications * To maintain your health at the optimal level Directions to Meet Your Goals Take your medications as prescribed Follow your dietary instruction Follow activity as directed Keep your appointments as scheduled Take your immunizations and boosters as scheduled If your symptoms worsen call your PCP, if no PCP go to Urgent Care Center or Emergency Room Smoking is Dangerous to Your Health. Avoid second hand smoke Call the 24-hour hour crisis hotline for domestic abuse at Peggy Samuel MD Jun 26, 2017 13:01
--- NOTE | 2017-06-26 13:02 | HHI.DS ---
Discharge Summary Admission Date Jun 24, 2017 at 12:33 Discharge Date: Jun 26, 2017 Admitting Diagnosis rectal bleed, acute diverticulitis (1) GI (gastrointestinal bleed) ICD Code: K92.2 - Gastrointestinal hemorrhage, unspecified Status: Acute (2) Diverticulitis ICD Code: K57.92 - Diverticulitis of intestine, part unspecified, without perforation or abscess without bleeding Status: Acute (3) Hypertension, essential ICD Code: I10 - Essential (primary) hypertension Status: Chronic (4) ADD (attention deficit disorder) ICD Code: F98.8 - Other specified behavioral and emotional disorders with onset usually occurring in childhood and adolescence (5) 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 Bharat Samuel on 06/24/17 at 14: 18. Ms. 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 She stated that the surgeon told her she was not a candidate at that time for surgery. Ms. Acosta reported having undergone a "mini facelift" approximately one week ago and was due to have her stitches removed yesterday, but due to her condition, was not able to return to [place], [place] to have them removed. Ms. Freeman presented to the emergency room for evaluation of rectal bleeding that began 2-3 days ago. At that time though the rectal bleeding onset she also began experiencing abdominal pain. Bowel movements have been described as bloody without stool. Over the past 24 hours she reported having 5-6 large bloody bowel movements. She stated when this began she felt "icy cold" and was sweating to the extent that "sweated right through my close". Appetite has also been reported reduced. She was seen by her primary care physician and had an outpatient CT scan of the abdomen and pelvis that revealed thickened wall of colon suggestive of either diverticulitis, colitis or malignancy. Ms. Freeman reported her primary care physician directed her to come to [facility] for evaluation and management of her condition. At time of interview Ms. Freeman endorsed fatigue, abdominal pain, and concerned about her general well-being. She denied fever, chills, nausea, vomiting, constipation, chest/abdominal pain, shortness of breath. A 10 point review of systems was completed and except as noted above, was negative. CBC/BMP: 06/25/17 0540 06/25/17 0540 Significant Findings Laboratory Tests Test 06/24/17 11:10 06/25/17 00:01 06/25/17 05:40 White Blood Count 13.0 TH/MM3 (4.0-11.0) 11.4 TH/MM3 (4.0-11.0) Neutrophils (%) (Auto) 82.5 % (16.0-70.0) 81.4 % (16.0-70.0) Neutrophils # (Auto) 10.7 TH/MM3 (1.8-7.7) 9.3 TH/MM3 (1.8-7.7) Creatinine 1.01 MG/DL (0.50-1.00) Random Glucose 107 MG/DL (74-106) 116 MG/DL (74-106) Estimat Glomerular Filtration Rate 53 ML/MIN (>89) 79 ML/MIN (>89) Red Blood Count 3.72 MIL/MM3 (4.00-5.30) Lymphocytes (%) (Auto) 7.2 % (9.0-44.0) Lymphocytes # (Auto) 0.8 TH/MM3 (1.0-4.8) Blood Urea Nitrogen 6 MG/DL (7-18) Calcium Level 8.1 MG/DL (8.5-10.1) PE at Discharge GENERAL: This is a well-nourished, well-developed patient, in no apparent distress. SKIN: No rashes, ecchymoses or lesions. Cool and dry. CARDIOVASCULAR: Regular rate and rhythm without murmurs, gallops, or rubs. RESPIRATORY: Clear to auscultation. Breath sounds equal bilaterally. No wheezes , rales, or rhonchi. GASTROINTESTINAL: Abdomen soft, non-tender, nondistended. No hepato- splenomegaly or guarding. MUSCULOSKELETAL: Extremities without clubbing, cyanosis, or edema. NEUROLOGICAL: Awake and alert. Cranial nerves II through XII intact. Motor and sensory grossly within normal limits. Five out of 5 muscle strength in all muscle groups. Speech was clear and fluent. Hospital Course Ms. 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 She stated that the surgeon told her she was not a candidate at that time for surgery. Ms. Acosta reported having undergone a "mini facelift" approximately one week ago and was due to have her stitches removed yesterday, but due to her condition, was not able to return to [place], [place] to have them removed. patient with rectal bleeding severe diverticulosis descending sigmoid , colitis in descending sig suggesting ischemic colitis this was biopsied, external hemorrhoids. GI consulted, appreciate recommendations, recommends levaquin and flagyl at DC S/P sigmoidoscopy 06/[address] Fofana GI Colonoscopy in 8 weeks Tolerates diet and no bleeding can DC home . Monitor H/H stable To follow up with GI as OP in 2 weeks To follow up as OP with her PCP and consultants. patient has anappointment on Friday with her plastic surgeon to remove stitches. Rectal bleeding HGB 13 on admission trending down, monitor H.H transfuse of HGB < 7 or if symptomatic Severe diverticulosis descending sigmoid Colitis in descending sig suggesting ischemic colitis this was biopsied External hemorrhoids -Admit to inpt service. -GI consulted, appreciate recommendations -Protonix 40 mg by mouth daily -Ciprofloxacin 400 mg IV every 8 hrs -Metronidazole 500 mg IV every 6 hours -S/P sigmoidoscopy 06/[address] Fofana GI -Soft diet advance as indicated -Colonoscopy in 8 weeks -If tolerates diet and no bleeding can DC home in 1-2 days . Monitor H/H - To follow up with GI as OP in 2 weeks Hypnagogic hallucinations Attention deficit disorder -Adderall 10 mg by mouth twice a day Hypertension -Enlapril IV prn for systolic BP greater than 160 -Hydralazine IV prn for systolic BP greater than 160 -Resume home medications once known. DVT prophylaxis -Chemoprophylaxis not warranted at this time due to patient's active bleeding. -SCDs ordered. Diet - Soft diet, advance diet as per GI recommendation Discussed Condition With Patient and nurse Pt Condition on Discharge: Stable Discharge Disposition: Discharge Home Discharge Time: > 30 minutes Discharge Instructions DIET: Follow Instructions for: Heart Healthy Diet, Low Fiber Diet Activities you can perform: Regular-No Restrictions Follow up Referrals: Gastroenterology - 2 Weeks @ [facility] PCP Follow-up - 2-3 Days New Medications: Levofloxacin (Levaquin) 500 Mg Tablet 500 MG PO DAILY@1200 for infection for 8 Days, MG Metronidazole (Flagyl) 500 Mg Tab 500 MG PO Q8HR for Infection for 8 Days, TAB Pantoprazole (Pantoprazole) 40 Mg Tab 40 MG PO DAILY for gerd, #30 TAB Continued Medications: Amphetamine-Dextroamphetamine (Adderall) 10 Mg Tab 10 MG PO BID for Hyperactivity Control, #60 TAB 0 Refills Avoid late evening doses. Space doses at least 4 to 6 hours if more than once/day dosing. Atorvastatin (Atorvastatin) 10 Mg Tab 10 MG PO HS for Cholesterol Management, #30 TAB 0 Refills Lisinopril (Lisinopril) 5 Mg Tab 5 MG PO DAILY for Blood Pressure Management, #30 TAB 0 Refills Peggy Samuel MD Jun 26, 2017 13:02
[2017-06-26] MEDS ORDERED: metroNIDAZOLE 500 MG TAB PO SCH (14:00)
== END 2017-06-26 13:36 | disposition home or self-care (01) | DRG 394 ==
LOC: NEPE 10:32 → NEDA 12:33 → N07B 18:54
PROVIDERS: ADMIT Hospitalist; ATTEND Hospitalist
PROC: 0DBM8ZX Excision of Descending Colon, Via Natural or Artificial Opening Endoscopic, Diagnostic (ICD-10-PCS; principal; 2017-06-25 09:47)
DX: K55.9 Vascular disorder of intestine, unspecified (principal); R44.2 Other hallucinations; N17.9 Acute kidney failure, unspecified; K62.5 Hemorrhage of anus and rectum; I10 Essential (primary) hypertension; K64.4 Residual hemorrhoidal skin tags; K57.30 Diverticulosis of large intestine without perforation or abscess without bleeding; F98.8 Other specified behavioral and emotional disorders with onset usually occurring in childhood and adolescence; Z90.5 Acquired absence of kidney; Z85.828 Personal history of other malignant neoplasm of skin; Z87.891 Personal history of nicotine dependence
CPT/HCPCS: 80048; 85014; 85018; 85025; 85610; 88305; 93005; 96365; G8987-GP; G8988-GP; J0744; J1885; J2250; J2405; J3010; J7030

== ENCOUNTER → 2017-07-18 | Outpatient (CLI) | payer MEDICARE, OTHER ==
[~2017-07-18] MED LIST: ADDE10 PO; ATOR10TA15 PO; LEVA500T20 PO; LISI-519 PO; METR-1 PO; PANT40TA3 PO
--- NOTE | 2017-07-18 11:14 | RADRPT ---
EXAM DATE/TIME: 07/18/2017 09:02 [facility] COMPARISON: No previous studies available for comparison. INDICATIONS : History of celiac stenosis. MEDICAL HISTORY : Hypercholesterolemia. Arthritis. Skin cancer. Celiac stenosis. SURGICAL HISTORY : Tonsillectomy. Appendectomy. Nephrectomy, left. Implanted lenses bilaterally. ENCOUNTER: Initial ACUITY: 1 day PAIN SCORE: 0/10 LOCATION: Abdomen. AORTA: SAGITTAL PROXIMAL: 62.5 cm/sec SAGITTAL MID: 73.6 cm/sec SAGITTAL DISTAL: 65.8 cm/sec CELIAC ARTERY: CA ORIGIN: 461.6 cm/sec CA PROXIMAL: 129.1 cm/sec CA MID: 129.1 cm/sec CA DISTAL: 113.4 cm/sec HEPATIC ARTERY: 57.6 cm/sec SPLENIC ARTERY: 146.8 cm/sec SUPERIOR MESENTERIC ARTERY: SMA PROXIMAL: 87.5 cm/sec SMA MID: 53.1 cm/sec SMA DISTAL: 151.2 cm/sec FINDINGS: Morgan scale imaging demonstrates diffuse atherosclerotic calcifications in the bowel aorta involving t he celiac artery origin. Significant elevated velocities involving the celiac artery origin with peak systolic velocities consistent with a greater than 70% stenosis. SMA appears patent. CONCLUSION: 1. 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 2. SMA appears patent. Rigo Hurley MD on July 18, 2017 at 10:51 Board Certified Radiologist. This report was verified electronically.
== END ==
LOC: HRAD 08:34
PROVIDERS: ATTEND Internal Medicine Gastroenterology
DX: K55.9 Vascular disorder of intestine, unspecified (principal); I77.4 Celiac artery compression syndrome
CPT/HCPCS: 93975

== ENCOUNTER → 2017-08-11 | Outpatient (CLI) | payer MEDICARE, OTHER ==
[~2017-08-11] MED LIST changes: -LEVA500T20 PO; +LEVA500T33 PO
--- NOTE | 2017-08-12 11:32 | RADRPT ---
EXAM DATE/TIME: 08/11/2017 15:52 [facility] COMPARISON : No previous studies available for comparison. INDICATIONS : Evaluate images and chart for mesenteric endovascular treatment. HISTORY OF PRESENT ILLNESS: 76-year-old female who underwent workup for abdominal pain which included ultrasound of the mesenteri c vessels as well as colonoscopy and biopsy. [facility]. A colonoscopy was performed by Dr. Fofana which revealed severe diverticulosis. Changes suggesting ischemic colitis with biopsy consistent with this. IMAGING STUDIES: A CTA of the abdomen was performed at [facility]. These images reveal a 60-65% stenosis invo lving the celiac origin. There is some post stenotic dilatation observed. The SMA and TERE are widely patent. There is great collateralization between the celiac and SMA via the GDA. ASSESSMENT: There is a stenosis of the celiac but this will be clinically insignificant given the widely patent m esenteric vessels elsewhere as well as the great collateralization seen between the SMA and celiac. T his patient would not benefit from celiac intervention. PLAN: This patient would not benefit from celiac intervention. TIME SPENT: 20 minutes Momo Fletcher Jr., MD on August 12, 2017 at 11:08 Board Certified Radiologist. This report was verified electronically.
== END ==
LOC: HRAD 15:40
PROVIDERS: ATTEND Internal Medicine Gastroenterology
DX: K90.0 Celiac disease (principal)